=== PATIENT | female | born 1985 | race Two or more races ===

== ENCOUNTER → 2018-01-10 | Outpatient (REF) | payer OTHER | LOC: M SFHCCLAY 08:16 | DX: N39.0 Urinary tract infection, site not specified (principal) | CPT/HCPCS: 87086 ==

== ENCOUNTER → 2018-02-10 | Outpatient (REF) | payer OTHER | LOC: M SFHCCLAY 11:57 | DX: R30.0 Dysuria (principal) ==

== ENCOUNTER → 2018-05-02 | Outpatient (REF) | payer OTHER | LOC: M SFHCCLAY 13:55 | DX: N30.00 Acute cystitis without hematuria (principal) | CPT/HCPCS: 87086 ==

== ENCOUNTER → 2020-11-02 | Outpatient (REF) | payer OTHER ==
[~2020-11-02] MED LIST: AMET1TAB4 PO; HYDROCHL PO; METO50TA9 PO; METOPROLOL SUCCINATE PO; OMEP1CAP73 PO; [UNRECOGNIZED DRUG - OTHER] PO; meto
[2020-11-02 13:56] LABS: HEMATOCRIT 38.2 % (36.0-47.0); HEMOGLOBIN 11.7 g/dl (12.0-15.5); MEAN CORPUSCULAR HEMOGLOBIN 23.8 pg (27.0-33.0); MEAN CORPUSCULAR HGB CONC 30.6 g/dl (32.0-36.5); MEAN CORPUSCULAR VOLUME 77.6 fl (80.0-96.0); PLATELET COUNT, AUTOMATED 187 10^3/uL (150-450); RED BLOOD COUNT 4.92 10^6/uL (4.00-5.40); WHITE BLOOD COUNT 8.4 10^3/uL (4.0-10.0)
[2020-11-02 15:11] LABS: HEPATITIS C VIRUS ABY INDEX 0.1 INDEX (<0.8); HIV 1&2 SCREEN CENTAUR NEGATIVE (NEGATIVE)
== END ==
LOC: M PLALAB 11:42
PROVIDERS: ATTEND Specialist
DX: Z34.81 Encounter for supervision of other normal pregnancy, first trimester (principal)

== ENCOUNTER → 2020-12-13 | Outpatient (CLI) | payer OTHER | LOC: M PLALAB 11:09 | PROVIDERS: ATTEND Specialist | DX: Z34.82 Encounter for supervision of other normal pregnancy, second trimester (principal) ==

== ENCOUNTER → 2020-12-30 | Outpatient (CLI) | payer OTHER ==
--- NOTE | 2020-12-30 16:38 | REP ---
INDICATION: ANATOMY COMPARISON: None. TECHNIQUE: Transabdominal and transvaginal obstetrical ultrasound with color Doppler evaluation. FINDINGS: Examination demonstrates a single live intrauterine in cephalic presentation. motion is identified by technologist. Placenta is noted posterior and grade 1 with findings to suggest partial previa. Cervix measures 4.3 cm in length and appears closed. Gestational age by LMP 18 weeks 1 day with АЛЕКСАНДР 06/01/2021. Gestational age by current measurements 19 weeks 0 days with АЛЕКСАНДР 05/26/2021. FHR equals 146 beats per minute. BPD: 3.9 cm at 17 weeks 6 days HC: 15.5 cm at 18 weeks 3 days AC: 12.8 cm at 18 weeks 3 days FL: 3.0 cm at 19 weeks 3 days HL: 3.2 cm at 20 weeks 5 days HC/AC: 1.21 Estimated weight 255 grams (80thpercentile). Anatomical assessment demonstrates normal structures including cranium, choroid plexus, facial features, cardiac ventricular outflow tracts, diaphragm, stomach, three-vessel cord/abdominal wall, kidneys/bladder, spine, and extremities. Limited evaluation of the posterior fossa noted along with echogenic focus in the right cardiac ventricle which may represent prominent chordae tendineae. IMPRESSION: 1. Single live intrauterine in cephalic presentation demonstrating appropriate estimated weight. 2. Posterior placenta with partial previa warrants follow-up. 3. Anatomical limitations as noted above warrant follow-up. <Electronically signed by Jacob Woodruff > 12/30/20 [id number]
== END ==
LOC: M WHC 14:19
PROVIDERS: ATTEND Specialist
DX: O34.211 Maternal care for low transverse scar from previous cesarean delivery (principal); O10.012 Pre-existing essential hypertension complicating pregnancy, second trimester; Z3A.19 19 weeks gestation of pregnancy

== ENCOUNTER → 2021-01-27 | Outpatient (CLI) | payer OTHER ==
--- NOTE | 2021-01-27 13:09 | REP ---
INDICATION: F/U ANATOMY, follow-up low lying placenta, placenta previa. COMPARISON: 12/30/2020. TECHNIQUE: Limited follow-up sonography to evaluate placenta and an intracardiac echogenic focus. FINDINGS: Scanning demonstrates a viable single intrauterine gestation in a variable lie. motion is observed and heart rate is recorded at 156 beats per minute. A posterior, grade zero placenta is seen without evidence of previa on today's examination, seen well above the internal cervical os. Amniotic fluid is subjectively normal. Closed cervical length is measured at 3.8 cm transabdominally. No extrauterine abnormality is observed. There has been appropriate interval growth. No anomaly is seen. Previously noted intracardiac echogenic focus is not seen on today's examination. Structures visualized and unremarkable today were the cranial vault, lateral ventricles, falx, cavum septum pellucidum, cerebellum and cisterna magna, nuchal fold, profile view of the face, four-chamber heart view, right ventricular outflow tract, stomach bubble, abdominal wall, bladder and three-vessel cord all seen. The visualized structures all unremarkable. Biometry chart: BPD 5.1 cm; 21 weeks 3 days Head circumference 19.7 cm; 21 weeks 6 days Abdominal circumference 18.1 cm; 22 weeks 6 days Femur length 4.1 cm; 23 weeks 3 days Humeral length 3.6 cm; 22 weeks 3 days HC/AC ratio normal 1.09 Cephalic index normal 0.71 Estimated weight 549 grams, 1 pounds 3 ounces, 83rd percentile for 22 weeks 1 days. IMPRESSION: Viable single intrauterine gestation at 22 weeks days 3 days by today's composite sonographic criteria. Expected gestational age estimate based on prior sonography is 22 weeks is 1 days. АЛЕКСАНДР by prior sonography 06/01/2021. The placenta is seen posteriorly, not low lying or previa, it is away from the internal cervical os on today's exam. No anomaly. <Electronically signed by Bobby Garcia > 01/27/21 [id number]
== END ==
LOC: M WHC 08:31
PROVIDERS: ATTEND Obstetrics & Gynecology
DX: O44.02 Complete placenta previa NOS or without hemorrhage, second trimester (principal); Z3A.22 22 weeks gestation of pregnancy

== ENCOUNTER → 2021-02-10 | Outpatient (REF) | payer OTHER | LOC: CANPREREF → M PLALAB 15:56 | PROVIDERS: ATTEND Obstetrics & Gynecology | DX: O44.02 Complete placenta previa NOS or without hemorrhage, second trimester (principal) ==

== ENCOUNTER → 2021-04-07 | Outpatient (CLI) | payer OTHER | LOC: M WHC 08:40 | PROVIDERS: ATTEND Obstetrics & Gynecology | DX: Z36.89 Encounter for other specified antenatal screening (principal); Z3A.32 32 weeks gestation of pregnancy; Z53.9 Procedure and treatment not carried out, unspecified reason ==

== ENCOUNTER → 2021-04-21 | Outpatient (CLI) | payer OTHER ==
--- NOTE | 2021-04-21 12:33 | REP ---
INDICATION: BPP/HYPERTENSION. COMPARISON: None. TECHNIQUE: Transabdominal scanning FINDINGS: Multiple ultrasonographic images of the gravid uterus shows a single living intrauterine gestation in the cephalic presentation. Doppler interrogation of the heart shows a heart rate of 146 beats per minute. The placenta is posterior and not low-lying. The cervix measures 3.8 cm in length and is closed. The subjective amniotic fluid volume is within normal limits. The calculated amniotic fluid index is 13.4 with an expected range 8.1 to 24.8. Doppler interrogation of the umbilical artery shows an AB ratio of 2.55 and an AB ratio of 2.32 both within the normal range. Biophysical profile score is 2 for breathing, 2 for movement, 2 for tone, and 2 for amniotic fluid volume giving a sum total of 8/8. IMPRESSION: Limited OB ultrasound as described above. <Electronically signed by Tony Paredes > 04/21/21 [id number]
== END ==
LOC: M WHC 11:41
PROVIDERS: ATTEND Obstetrics & Gynecology
DX: Z36.89 Encounter for other specified antenatal screening (principal); Z3A.32 32 weeks gestation of pregnancy

== ENCOUNTER → 2021-04-27 | Outpatient (CLI) | payer OTHER ==
--- NOTE | 2021-04-27 08:20 | REP ---
INDICATION: HYPERTENSION,BPP COMPARISON: 04/21/2021 TECHNIQUE: Transabdominal obstetrical ultrasound with color Doppler evaluation. FINDINGS: Examination demonstrates a single live intrauterine in cephalic presentation. motion is identified by technologist. Placenta is noted posterior and grade 1 without evidence for placenta previa or abruption. Amniotic fluid volume is normal. Selected gestational age: 35 weeks 0 days with АЛЕКСАНДР 06/01/2021. FHR equals 143 beats per minute. IVONNE: 14.3 cm (7.9-24.9) Biophysical profile score: 8/8 Umbilical artery SD ratio: 2.83 (1.68-3.59) IMPRESSION: Single live advanced gestation in cephalic presentation. Amniotic fluid index and biophysical profile score normal. <Electronically signed by Jacob Woodruff > 04/27/21 [id number]
== END ==
LOC: M WHC 06:54
PROVIDERS: ATTEND Obstetrics & Gynecology
DX: I10 Essential (primary) hypertension (principal)

== ENCOUNTER → 2021-05-03 | Outpatient (CLI) | payer OTHER ==
[~2021-05-03] MED LIST changes: +ECOT81TA5 PO; +LABE200T32 PO
--- NOTE | 2021-05-03 13:41 | REP ---
INDICATION: HYPERTENSION,BPP. TECHNIQUE: Transabdominal scanning FINDINGS: Multiple ultrasonographic images of the gravid uterus show a single living intrauterine gestation in the cephalic presentation. Doppler interrogation of the heart shows a heart rate of 127 beats per minute. The placenta is posterior and not low-lying. The head was too low for an accurate cervical length measurement. The subjective amniotic fluid volume is within normal limits. The calculated amniotic fluid index is 15.1 within expected range 7.7 to 24.9. biophysical profile score is 2 for breathing, 2 for movement, 2 for tone, and 2 for amniotic fluid volume giving a sum total of 8/8. Doppler interrogation of the umbilical artery shows an AB ratio of 2.57. This is within the normal range IMPRESSION: Limited OB ultrasound as described above. <Electronically signed by Tony Paredes > 05/03/21 [id number]
== END ==
LOC: M WHC 12:42
PROVIDERS: ATTEND Obstetrics & Gynecology
DX: Z36.89 Encounter for other specified antenatal screening (principal); Z3A.32 32 weeks gestation of pregnancy

== ENCOUNTER → 2021-05-04 | Outpatient (REF) | payer OTHER | LOC: M SFHCWAGY 17:19 | PROVIDERS: ATTEND Specialist | DX: Z34.83 Encounter for supervision of other normal pregnancy, third trimester (principal) ==

== ENCOUNTER → 2021-05-11 | Outpatient (CLI) | payer OTHER ==
--- NOTE | 2021-05-11 10:18 | REP ---
INDICATION: HTN COMPARISON: 05/03/2021 TECHNIQUE: Transabdominal obstetrical ultrasound with color Doppler evaluation. FINDINGS: Examination demonstrates a single live intrauterine in cephalic presentation. motion is identified by technologist. Placenta is noted posterior and grade 2 without evidence for placenta previa or abruption. Amniotic fluid volume is normal. Cervix measures 3.8 cm in length and appears closed.. Selected gestational age: 37 weeks 0 days with АЛЕКСАНДР 06/01/2021. FHR equals 143 beats per minute. IVONNE: 14.2 cm Umbilical artery SD ratio: 1.93 (1.59-3.43) Biophysical profile score: 8/8 IMPRESSION: Single live advanced gestation in cephalic presentation. Amniotic fluid volume and biophysical profile score are normal. <Electronically signed by Jacob Woodruff > 05/11/21 [id number]
== END ==
LOC: M WHC 08:54
PROVIDERS: ATTEND Obstetrics & Gynecology
DX: Z36.89 Encounter for other specified antenatal screening (principal); Z3A.32 32 weeks gestation of pregnancy

== ENCOUNTER → 2021-05-13 | Outpatient (CLI) | payer OTHER | LOC: M LABSMTC 09:53 | PROVIDERS: ATTEND Anesthesiology | DX: Z01.812 Encounter for preprocedural laboratory examination (principal); Z20.822 Contact with and (suspected) exposure to COVID-19 ==

== ENCOUNTER 2021-05-18 05:36 | Inpatient (IN) | payer OTHER ==
[2021-05-18] VITALS (9 sets, daily range): BP systolic 119–170; BP diastolic 57–93
[~2021-05-18] VITALS: Ht 177.8 cm; Wt 124.8 kg
[2021-05-18] MEDS ORDERED: ceFAZolin SOD 2 GM in IV 1 EA IV ONE (06:00)
[2021-05-18] MEDS ORDERED: BICITRA 30ML SOLN UDC PO ONE (06:00)
[2021-05-18] MEDS ORDERED: LR 800 ML IV ONE (06:00)
[2021-05-18 06:25] LABS: HEMATOCRIT 30.2 % (36.0-47.0); HEMOGLOBIN 9.8 g/dl (12.0-15.5); MEAN CORPUSCULAR HEMOGLOBIN 25.5 pg (27.0-33.0); MEAN CORPUSCULAR HGB CONC 32.5 g/dl (32.0-36.5); MEAN CORPUSCULAR VOLUME 78.4 fl (80.0-96.0); PLATELET COUNT, AUTOMATED 151 10^3/uL (150-450); RED BLOOD COUNT 3.85 10^6/uL (4.00-5.40); WHITE BLOOD COUNT 9.8 10^3/uL (4.0-10.0)
[2021-05-18] MEDS ORDERED: LR 1,000 ML IV SCH ×2 (06:45→09:50)
[2021-05-18] MEDS ORDERED: ONDANSETRON 4MG/2ML VIAL As Ordered ONE (07:08)
[2021-05-18] MEDS ORDERED: OXYTOCIN INJ 10 UNITS/ML VIAL (J2590) As Ordered ONE (07:08)
[2021-05-18] MEDS ORDERED: ePHEDrine SULFATE 25 MG/5 ML(5MG/ML) SYRINGE As Ordered ONE (07:08)
[2021-05-18] MEDS ORDERED: KETOROLAC 60MG 2ML VIAL As Ordered ONE (07:08)
[2021-05-18] MEDS ORDERED: PHENYLephrine 500MCG 5ML (100MCG/ML) SYRINGE As Ordered ONE (07:08)
[2021-05-18] MEDS ORDERED: dexameTHASONE 4 MG/ML 1ML VIAL (J1100 PER 1MG) As Ordered ONE (07:08)
[2021-05-18] MEDS ORDERED: OXYTOCIN 30 UNITS IN 0.9% NaCl 500ML IV BAG (J2590) As Ordered ONE (07:12)
[2021-05-18] MEDS ORDERED: MORPHINE PRES-FREE INJ 10 MG/10 ML VIAL (J2274) As Ordered ONE (07:27)
[2021-05-18] MEDS ORDERED: ONDANSETRON 4MG/2ML VIAL IV PRN ×3 (07:40→09:50)
[2021-05-18] MEDS ORDERED: METOCLOPRAMIDE INJ 10MG/2ML VIAL (J2765 PER 1) IV PRN ×2 (07:40→09:50)
[2021-05-18] MEDS ORDERED: diphenhydrAMINE 50MG/ML VIAL (J1200) IV PRN (07:40)
[2021-05-18] MEDS ORDERED: NALOXONE INJ 0.4MG/1ML VIAL (J2310 PER 1MG) IV PRN ×2 (07:40)
[2021-05-18] MEDS ORDERED: NALBUPHINE HCL 10 MG/ML AMP (J2300) IV PRN (07:40)
[2021-05-18] MEDS ORDERED: fentaNYL 100 MCG/2 ML INJECTION (J3010) As Ordered ONE (08:34)
[2021-05-18] MEDS ORDERED: ACETAMINOPHEN 500 MG TAB PO PRN (08:55)
[2021-05-18] MEDS ORDERED: OXYTOCIN DRIP 30 UNITS in IV 1 EA IV SCH (08:55)
[2021-05-18] MEDS ORDERED: RHOGAM 300 MCG (1500 IU) INJ (J2790) IM SCH (08:55)
[2021-05-18] MEDS ORDERED: PERCOCET 5MG/325MG TAB PO PRN ×3 (08:55→09:50)
[2021-05-18] MEDS ORDERED: SIMETHICONE 80MG CHEW TAB PO PRN (08:55)
[2021-05-18] MEDS ORDERED: MEASLES,MUMPS,RUBELLA VACCINE INJ (MMR-II) (90707) SC SCH (08:55)
[2021-05-18] MEDS: OMEPRAZOLE 20 MG CAP PO SCH (09:00)
[2021-05-18] MEDS: PRENATAL VITAMINS CHEWABLE TABLET PO SCH (09:00)
[2021-05-18] MEDS: DOCUSATE SODIUM 100MG CAPSULE PO SCH ×2 (09:00→20:15)
[2021-05-18] MEDS: LABETALOL 200 MG TAB PO SCH ×2 (09:00→20:36)
[2021-05-18] MEDS ORDERED: DOK1CAP7 PO (09:04)
[2021-05-18] MEDS ORDERED: IBUP80TA PO (09:04)
[2021-05-18] MEDS ORDERED: PERCOCET PO (09:04)
--- NOTE | 2021-05-18 09:20 | ROOPDOC ---
[facility] Report Of Operation Report of Operation DATE OF PROCEDURE: 05/18/21 Report of operation Preoperative diagnosis: 38 weeks, chronic hypertension, prior Postoperative diagnosis: same Procedure: Repeat low transverse section and left partial salpingectomy Surgeon: Mercedes Choudhury M.D. Asst.: Anibal Enriquez DO EBL: 700 ml. Urine output: 100 mL's. Findings: 7 lbs. 12 oz. female , 's 8 and 9 g. Dense adhesions of uterus to the anterior abdominal wall. Omental adhesions to the uterus. Surgically absent right ovary and fallopian tube. Omental adhesions to the left adnexa. Operative summary: Patient taken to the operating room where spinal anesthesia was induced. She was prepped and draped in a sterile fashion in the supine position. A Sawyer catheter was placed. A Pfannenstiel skin incision was made with scalpel. Fascia was incised and extended bilaterally. The peritoneal cavity was entered. A Mobius retractor was unable to be placed due to dense adhesions. A curvilinear incision was made in lower uterine segment until Clear fluid was noted. The incision was extended manually. The infant was delivered from the vertex position without difficulty. Cord was doubly clamped and cut. The infant was handed to awaiting nurses. The placenta was expressed. Uterus was closed with O-Vicryl in a running locked fashion. A second imbricating layer of Vicryl was placed. Adhesions of the uterus to the anterior abdominal wall were taken down sharply. Attention was turned to the fallopian tube. A [place] clamp was used to grasp the fallopian left tube at the midportion.. A window was created in the broad ligament. A free tie of 2-0 chromic was placed around the segment of tube on either side of the clamp. A Segment of tube was excised and sent to pathology. The absence of a right ovary and fallopian tube was confirmed visually. Numerous [id number] sutures were placed in order to achieve him hemostasis. Franck was placed over all raw surface areas of the anterior uterus. Peritoneum was closed with 2-0 Vicryl a running fashion. Fascia was closed with 0 Vicryl in running fashion. Skin was closed 4-0 Monocryl subcuticular sutures. Sponge, instrument and needle counts were correct. Anibal Enriquez DO, assisted with all aspects of the procedure. He helped close each layer of the incision and deliver the fetus. MERCEDES CHOUDHURY MD May 18, 2021 09:20
[2021-05-18] MEDS ORDERED: fentaNYL 100 MCG/2 ML INJECTION (J3010) IV PRN (09:50)
[2021-05-18] MEDS: LR 1,000 ML IV SCH ×2 (10:50→16:55)
[2021-05-18] MEDS: KETOROLAC 30 MG/ML 1ML VIAL IV SCH ×2 (14:01→20:15)
[2021-05-19] VITALS (7 sets, daily range): BP systolic 118–141; BP diastolic 56–79
[2021-05-19] MEDS: KETOROLAC 30 MG/ML 1ML VIAL IV SCH (01:51)
[2021-05-19 07:31] LABS: HEMATOCRIT 21.2 % (36.0-47.0); MEAN CORPUSCULAR HEMOGLOBIN 24.9 pg (27.0-33.0); MEAN CORPUSCULAR HGB CONC 31.6 g/dl (32.0-36.5); MEAN CORPUSCULAR VOLUME 78.8 fl (80.0-96.0); PLATELET COUNT, AUTOMATED 125 10^3/uL (150-450); RED BLOOD COUNT 2.69 10^6/uL (4.00-5.40); WHITE BLOOD COUNT 12.6 10^3/uL (4.0-10.0)
[2021-05-19 07:33] LABS: HEMOGLOBIN 6.7 g/dl (12.0-15.5)
[2021-05-19] MEDS: OMEPRAZOLE 20 MG CAP PO SCH (08:06)
[2021-05-19] MEDS: PRENATAL VITAMINS CHEWABLE TABLET PO SCH (08:07)
[2021-05-19] MEDS: DOCUSATE SODIUM 100MG CAPSULE PO SCH ×2 (08:07→20:22)
[2021-05-19] MEDS: LABETALOL 200 MG TAB PO SCH ×2 (08:08→20:22)
--- NOTE | 2021-05-19 08:39 | IPNPDOC ---
Progress Note Date of Service: May 19, 2021 Day#: 1 Progress Note SUBJECT: Status post RLTCS with unilateral tubal ligation. Notable for extensive adhesions. She has been ambulating, voiding spontaneously without issue and tolerating regular diet. Lochia decreasing/minimal. Pain is well- controlled. Incision bandage is clean/unsaturated. Denies headache, visual changes, right upper quadrant pain, shortness of breath or chest pain. Denies any lightheaded dizziness fatigue or presyncopal episodes. OBJECTIVE: VITAL SIGNS: Within normal limits, afebrile. Alert and oriented times three. Abdomen: Fundus firm at U-2. Soft, NTTP. Incision bandage not soaked through H/H: 04/17 ASSESSMENT: Status post uncomplicated RLTCS with unilateral tubal ligation. Postoperative anemia, currently asymptomatic. vitals within normal limits, afebrile, hemodynamically stable with no evidence of infection. PLAN: Discharge to home tomorrow Consider blood transfusion if patient becomes symptomatic today Routine /postoperative advancement Postoperative instructions/precautions reviewed. Routine PP visit at 2 and 6 weeks in clinic. VS, I&O, 24H, Fishbone Vital Signs/I&O Vital Signs Date Time Temp Pulse Resp B/P (MAP) Pulse Ox O2 Delivery O2 Flow Rate FiO2 05/19/21 08:08 80 127/62 05/19/21 05:56 97.9 17 99 Room Air I&O- Last 24 Hours up to 6 AM 05/19/21 06:00 Intake Total 4650 ml Output Total 2130 ml Balance 2520 ml Laboratory Data 24H LABS Laboratory Tests 2 05/19/21 06:58: Nucleated Red Blood Cells % (auto) 0.0 CBC/BMP Laboratory Tests 05/19/21 06:58 RONA TOLEDO DO May 19, 2021 08:39
[2021-05-19] MEDS: IBUPROFEN 800 MG TAB PO SCH ×2 (12:04→18:56)
[2021-05-20] MEDS: IBUPROFEN 800 MG TAB PO SCH ×2 (01:55→09:21)
[2021-05-20 02:17] VITALS: BP 130/60
[2021-05-20 06:14] VITALS: BP 133/65
--- NOTE | 2021-05-20 07:32 | DS.PDOC ---
Discharge Summary General Date of Admission May 18, 2021 at 05:36 Date of Discharge May 20, 2021 Discharge Summary PROCEDURES PERFORMED DURING STAY: Repeat section with partial left salpingectomy ADMITTING DIAGNOSES: 1. Chronic hypertension in 2. Prior section 3. Obesity DISCHARGE DIAGNOSES: 1. Chronic hypertension 2; Repeat section @ term with partial left salpingectomy 3. Obesity COMPLICATIONS/CHIEF COMPLAINT: Previous Chronic Hypertension. HISTORY OF PRESENT ILLNESS: Ms Celestin was admitted 05/18/2021 for repeat section with partial left salpingectomy performed by Dr Evangelista, assisted by Dr Enriquez HOSPITAL COURSE: Ambulating, tolerating diet, adequate pain management, voiding and passing flatus DISCHARGE MEDICATIONS: Please see below. ALLERGIES: Please see below. PHYSICAL EXAMINATION ON DISCHARGE: VITAL SIGNS: Please see below. GENERAL: No distress HEENT: WNL NECK: Supple CARDIOVASCULAR EXAMINATION: HRR, well controlled hypertension RESPIRATORY EXAMINATION: Clear and unlabored ABDOMINAL EXAMINATION: Fundus firm, dressing intact with old drainage as marked EXTREMITIES: Equal strength and motion SKIN: Intact NEUROLOGICAL EXAMINATION: Grossly intact PSYCHIATRIC EXAMINATION: Appropriate LABORATORY DATA: Please see below. PROGNOSIS: Good ACTIVITY: As tolerated, pelvic rest DIET: As tolerated DISCHARGE PLAN: Home today with family DISPOSITION: Home. DISCHARGE INSTRUCTIONS: 1. Oral medications as directed. Remove dressing day 5. Continue PNV, iron rich foods. Pelvic rest. Call with fever, nausea, vomiting, chills, foul lochia, wound exudate, blood pressure elevations. 2. RTO 2wks and 6 wks DISCHARGE CONDITION: Stable TIME SPENT ON DISCHARGE: 10 minutes. Vital Signs/I&Os Vital Signs Date Time Temp Pulse Resp B/P (MAP) Pulse Ox O2 Delivery O2 Flow Rate FiO2 05/20/21 06:14 97.9 72 18 133/65 (87) 99 05/20/21 02:17 Room Air I&O- Last 24 Hours up to 6 AM 05/20/21 06:00 Intake Total 300 ml Balance 300 ml Discharge Medications Scheduled Aspirin (Ecotrin) 81 Mg Tablet, 81 MG PO DAILY, (Reported) Docusate Sodium (Dok) 100 Mg Capsule, 100 MG PO BID Ibuprofen (Ibuprofen) 800 Mg Tablet, 800 MG PO Q8H Labetalol HCl (Labetalol HCl) 200 Mg Tablet, 200 MG PO BID, (Reported) Omeprazole (Omeprazole) 20 Mg Cap, 20 MG PO DAILY, (Reported) Scheduled PRN Oxycodone/Acetaminophen (Oxycodone-Acetaminophen 5-325) 1 Each Tablet, 1 TAB PO Q4H PRN for MILD/MODERATE PAIN (PS 1-7) Allergies Coded Allergies: No Known Allergies (Unverified , 05/18/21) Nery Rivas CNM May 20, 2021 07:32
[2021-05-20 09:14] VITALS: BP 132/69
[2021-05-20] MEDS: DOCUSATE SODIUM 100MG CAPSULE PO SCH (09:20)
[2021-05-20] MEDS: PRENATAL VITAMINS CHEWABLE TABLET PO SCH (09:20)
[2021-05-20] MEDS: OMEPRAZOLE 20 MG CAP PO SCH (09:21)
[2021-05-20 09:22] VITALS: BP 132/69
[2021-05-20] MEDS: LABETALOL 200 MG TAB PO SCH (09:22)
== END 2021-05-20 11:37 | disposition home or self-care (01) | DRG 784 ==
LOC: M LDI 05:36 → M OBS 10:29
PROVIDERS: ADMIT Specialist; ATTEND Specialist
PROC: 0UB60ZZ Excision of Left Fallopian Tube, Open Approach (ICD-10-PCS; 2021-05-18)
PROC: 10D00Z1 Extraction of Products of Conception, Low, Open Approach (ICD-10-PCS; principal; 2021-05-18 07:30)
DX: O34.211 Maternal care for low transverse scar from previous cesarean delivery (principal); O10.92 Unspecified pre-existing hypertension complicating childbirth; E66.9 Obesity, unspecified; O99.214 Obesity complicating childbirth; Z37.0 Single live birth; Z3A.39 39 weeks gestation of pregnancy

== ENCOUNTER → 2022-03-28 | Outpatient (REF) | payer OTHER ==
[~2022-03-28] MED LIST changes: +DOK1CAP4 PO; +IBUP80TA PO; +LABE200T3 PO; -LABE200T32 PO; +PERCOCET PO
[2022-03-28 11:38] LABS: BASO # 0.1 10^3/uL (0.0-0.2); BASO % 0.8 % (0.0-1.0); EOS # 0.2 10^3/uL (0.0-0.5); EOS % 2.4 % (0.0-3.0); HEMATOCRIT 34.2 % (36.0-47.0); HEMOGLOBIN 10.1 g/dl (12.0-15.5); LYMPH # 1.7 10^3/uL (1.5-5.0); LYMPH % 24.5 % (24.0-44.0); MEAN CORPUSCULAR HEMOGLOBIN 19.9 pg (27.0-33.0); MEAN CORPUSCULAR HGB CONC 29.5 g/dl (32.0-36.5); MEAN CORPUSCULAR VOLUME 67.5 fl (80.0-96.0); MONO # 0.9 10^3/uL (0.0-0.8); NEUTROPHILS # 4.3 10^3/uL (1.5-8.5); PLATELET COUNT, AUTOMATED 227 10^3/uL (150-450); RED BLOOD COUNT 5.07 10^6/uL (4.00-5.40); WHITE BLOOD COUNT 7.1 10^3/uL (4.0-10.0)
[2022-03-28 12:11] LABS: PERCENT SATURATION 6.5 % (13.2-45.0)
== END ==
LOC: M SFHCCLAY 07:24
PROVIDERS: ATTEND Nurse Practitioner Family
DX: D64.9 Anemia, unspecified (principal)

== ENCOUNTER → 2023-01-08 | Outpatient (REF) | payer OTHER ==
[~2023-01-08] MED LIST changes: -LABE200T3 PO; +LABE200T5 PO
[2023-01-08 12:02] LABS: BASO # 0.1 10^3/uL (0.0-0.2); BASO % 0.7 % (0.0-1.0); EOS # 0.2 10^3/uL (0.0-0.5); EOS % 2.3 % (0.0-3.0); HEMATOCRIT 45.1 % (36.0-47.0); HEMOGLOBIN 14.7 g/dl (12.0-15.5); LYMPH # 1.8 10^3/uL (1.5-5.0); LYMPH % 22.1 % (24.0-44.0); MEAN CORPUSCULAR HEMOGLOBIN 26.5 pg (27.0-33.0); MEAN CORPUSCULAR HGB CONC 32.6 g/dl (32.0-36.5); MEAN CORPUSCULAR VOLUME 81.4 fl (80.0-96.0); MONO # 0.8 10^3/uL (0.0-0.8); MONO % 9.3 % (2.0-8.0); NEUTROPHILS # 5.4 10^3/uL (1.5-8.5); NEUTROPHILS % 65.4 % (36.0-66.0); PLATELET COUNT, AUTOMATED 187 10^3/uL (150-450); RED BLOOD COUNT 5.54 10^6/uL (4.00-5.40); WHITE BLOOD COUNT 8.3 10^3/uL (4.0-10.0)
[2023-01-08 12:21] LABS: IRON (FE) 194 UG/DL (50-170); PERCENT SATURATION 58.6 % (13.2-45.0); TOTAL IRON BINDING CAPACITY 331 UG/DL (250-425)
[2023-01-08 12:49] LABS: ALBUMIN 3.8 G/DL (3.2-5.2); ALKALINE PHOSPHATASE 92 U/L (46-116); ALT/SGPT 19 U/L (7.0-40); AST/SGOT 20 U/L (<34); BILIRUBIN,TOTAL 0.4 MG/DL (0.3-1.2); BLOOD UREA NITROGEN 13 MG/DL (9-23); CALCIUM LEVEL 8.8 MG/DL (8.5-10.1); CARBON DIOXIDE LEVEL 29 MMOL/L (20-31); CHLORIDE LEVEL 103 MMOL/L (98-107); CREATININE FOR GFR 0.57 MG/DL (0.55-1.30); GLOMERULAR FILTRATION RATE > 60.0 (>60); GLUCOSE, FASTING 106 MG/DL (60-100); POTASSIUM SERUM 3.5 MMOL/L (3.5-5.1); SODIUM LEVEL 140 MMOL/L (136-145)
== END ==
LOC: M SFHCCLAY 07:54
PROVIDERS: ATTEND Nurse Practitioner Family
DX: D64.9 Anemia, unspecified (principal); I10 Essential (primary) hypertension

== ENCOUNTER → 2023-04-25 | Outpatient (REF) | payer OTHER ==
[2023-04-25 12:20] LABS: ALBUMIN 3.9 G/DL (3.2-5.2); ALKALINE PHOSPHATASE 98 U/L (46-116); ALT/SGPT 27 U/L (7.0-40); AST/SGOT 15 U/L (<34); BILIRUBIN,TOTAL 0.5 MG/DL (0.3-1.2); BLOOD UREA NITROGEN 13 MG/DL (9-23); CALCIUM LEVEL 9.6 MG/DL (8.5-10.1); CARBON DIOXIDE LEVEL 28 MMOL/L (20-31); CHLORIDE LEVEL 102 MMOL/L (98-107); CHOLESTEROL LEVEL 170 MG/DL (<200); FREE T4 0.99 NG/DL (0.89-1.76); GLOMERULAR FILTRATION RATE > 60.0 (>60); GLUCOSE, FASTING 116 MG/DL (60-100); LDL CHOLESTEROL 111.4 MG/DL (<100); POTASSIUM SERUM 3.5 MMOL/L (3.5-5.1); SODIUM LEVEL 136 MMOL/L (136-145); THYROID STIMULATING HORMONE 1.831 uIU/ML (0.55-4.78); TOTAL PROTEIN 7.4 G/DL (5.7-8.2); TRIGLYCERIDES LEVEL 123 MG/DL (<150)
[2023-04-25 12:37] LABS: HEMOGLOBIN A1c 5.4 % (4.0-6.0)
== END ==
LOC: M SFHCCLAY 07:54
PROVIDERS: ATTEND Nurse Practitioner Family
DX: D64.9 Anemia, unspecified (principal); I10 Essential (primary) hypertension; E78.2 Mixed hyperlipidemia; Z13.1 Encounter for screening for diabetes mellitus

== ENCOUNTER → 2023-05-22 | Outpatient (REF) | payer OTHER ==
[2023-05-22 18:02] LABS: BLOOD UREA NITROGEN 11 MG/DL (9-23); CALCIUM LEVEL 8.8 MG/DL (8.5-10.1); CARBON DIOXIDE LEVEL 29 MMOL/L (20-31); CHLORIDE LEVEL 100 MMOL/L (98-107); CREATININE FOR GFR 0.55 MG/DL (0.55-1.30); GLOMERULAR FILTRATION RATE > 60.0 (>60); GLUCOSE, FASTING 100 MG/DL (60-100); POTASSIUM SERUM 3.6 MMOL/L (3.5-5.1); SODIUM LEVEL 139 MMOL/L (136-145)
== END ==
LOC: M SFHCCLAY 11:12
PROVIDERS: ATTEND Nurse Practitioner Family
DX: E87.6 Hypokalemia (principal)

== ENCOUNTER → 2023-08-01 | Outpatient (CLI) | payer OTHER | LOC: M WHC 14:51 | PROVIDERS: ATTEND Obstetrics & Gynecology | DX: N93.9 Abnormal uterine and vaginal bleeding, unspecified (principal); N88.8 Other specified noninflammatory disorders of cervix uteri; Z90.721 Acquired absence of ovaries, unilateral ==

== ENCOUNTER 2023-09-25 07:08 | Day surgery (SDC) | payer OTHER ==
[~2023-09-25] VITALS: Ht 177.8 cm; Wt 126.0 kg
[~2023-09-25 07:08] MED LIST changes: +CHLO125TA PO
[2023-09-25] MEDS ORDERED: LR 1,000 ML IV SCH ×2 (07:15→11:05)
[2023-09-25 07:53] LABS: HEMATOCRIT 43.1 % (36.0-47.0); HEMOGLOBIN 14.5 g/dl (12.0-15.5); MEAN CORPUSCULAR HEMOGLOBIN 26.8 pg (27.0-33.0); MEAN CORPUSCULAR HGB CONC 33.6 g/dl (32.0-36.5); MEAN CORPUSCULAR VOLUME 79.7 fl (80.0-96.0); PLATELET COUNT, AUTOMATED 224 10^3/uL (150-450); RED BLOOD COUNT 5.41 10^6/uL (4.00-5.40); WHITE BLOOD COUNT 7.7 10^3/uL (4.0-10.0)
[2023-09-25] MEDS ORDERED: propofoL 200 MG/20 ML VIAL As Ordered ONE (08:13)
[2023-09-25] MEDS ORDERED: MIDAZOLAM INJ 2MG/2ML VIAL As Ordered ONE (08:13)
[2023-09-25] MEDS ORDERED: ONDANSETRON 4MG 2ML VIAL As Ordered ONE (08:13)
[2023-09-25] MEDS ORDERED: fentaNYL 100 MCG/2 ML INJECTION As Ordered ONE (08:13)
[2023-09-25] MEDS ORDERED: KETOROLAC 60MG 2ML VIAL As Ordered ONE (08:13)
[2023-09-25] MEDS ORDERED: LIDOCAINE 2% 100MG/5ML SDV (FOR ANES.) As Ordered ONE (08:13)
[2023-09-25] MEDS ORDERED: SILVER NITRATE APPLICATOR (1 = QTY 10) As Ordered ONE (08:47)
[2023-09-25] MEDS ORDERED: LIDOCAINE 1% SDV 30ML VIAL As Ordered ONE (08:48)
[2023-09-25] MEDS ORDERED: LEVONORGESTREL 52MG (MIRENA) IUD As Ordered ONE (08:48)
[2023-09-25] MEDS ORDERED: ACETAMINOPHEN 1000MG 100ML IV BAG As Ordered ONE (09:38)
[2023-09-25] MEDS ORDERED: fentaNYL 100 MCG/2 ML INJECTION IV PRN (10:05)
[2023-09-25] MEDS ORDERED: oxyCODONE 5MG TAB PO PRN (10:05)
[2023-09-25] MEDS ORDERED: MORPHINE 2 MG/ML 1ML VIAL IV PRN (10:05)
[2023-09-25] MEDS ORDERED: ONDANSETRON 4MG 2ML VIAL IV PRN (10:05)
[2023-09-25] MEDS ORDERED: IBUP1TAB7 PO (10:17)
[2023-09-25 11:39] VITALS: BP 136/96; TEMP 97.3; O2SAT 94
== END 2023-09-30 08:27 | disposition home or self-care (01) ==
LOC: M SDC 07:08
PROVIDERS: ATTEND Obstetrics & Gynecology
DX: N84.0 Polyp of corpus uteri (principal); Z30.430 Encounter for insertion of intrauterine contraceptive device; I10 Essential (primary) hypertension; K21.9 Gastro-esophageal reflux disease without esophagitis; D64.9 Anemia, unspecified; G47.33 Obstructive sleep apnea (adult) (pediatric); Z79.899 Other long term (current) drug therapy
CPT/HCPCS: 36415; 58300; 58558; 81025; 85027; 86850; 86900; 86901; 88305; J0131; J1100; J1885; J2250; J2405; J3010; J7298

== ENCOUNTER → 2024-04-14 | Outpatient (REF) | payer OTHER ==
[~2024-04-14] MED LIST changes: +IBUP1TAB7 PO
[2024-04-14 19:11] LABS: BASO # 0.1 10^3/uL (0.0-0.2); BASO % 0.5 % (0.0-1.0); EOS # 0.2 10^3/uL (0.0-0.5); EOS % 1.8 % (0.0-3.0); HEMATOCRIT 46.4 % (36.0-47.0); HEMOGLOBIN 15.7 g/dl (12.0-15.5); LYMPH % 20.5 % (24.0-44.0); MEAN CORPUSCULAR HEMOGLOBIN 27.2 pg (27.0-33.0); MEAN CORPUSCULAR HGB CONC 33.8 g/dl (32.0-36.5); MEAN CORPUSCULAR VOLUME 80.4 fl (80.0-96.0); MONO # 0.7 10^3/uL (0.0-0.8); MONO % 7.6 % (2.0-8.0); NEUTROPHILS # 6.6 10^3/uL (1.5-8.5); NEUTROPHILS % 69.1 % (36.0-66.0); PLATELET COUNT, AUTOMATED 194 10^3/uL (150-450); RED BLOOD COUNT 5.77 10^6/uL (4.00-5.40); WHITE BLOOD COUNT 9.6 10^3/uL (4.0-10.0)
[2024-04-14 19:19] LABS: COMPLEMENT C3 142.4 MG/DL (84.0-160.0); COMPLEMENT C4 28.8 MG/DL (12-36); RHEUMATOID FACTOR QUANT 3.9 IU/ML (<14)
[2024-04-14 19:20] LABS: ALBUMIN 3.8 G/DL (3.2-5.2); ALKALINE PHOSPHATASE 101 U/L (46-116); ALT/SGPT 22 U/L (7.0-40); AST/SGOT 13 U/L (<34); BILIRUBIN,TOTAL 0.5 MG/DL (0.3-1.2); BLOOD UREA NITROGEN 12 MG/DL (9-23); CARBON DIOXIDE LEVEL 28 MMOL/L (20-31); CHLORIDE LEVEL 102 MMOL/L (98-107); CHOLESTEROL LEVEL 157 MG/DL (<200); CHOLESTEROL RISK RATIO 4.37 (<5); GLOMERULAR FILTRATION RATE > 60.0 (>60); GLUCOSE, FASTING 140 MG/DL (60-100); HDL CHOLESTEROL 35.9 MG/DL (>40); LDL CHOLESTEROL 93.7 MG/DL (<100); NON-HDL-C 121.1 MG/DL; POTASSIUM SERUM 3.4 MMOL/L (3.5-5.1); SODIUM LEVEL 139 MMOL/L (136-145); TRIGLYCERIDES LEVEL 137 MG/DL (<150)
[2024-04-14 19:22] LABS: THYROID STIMULATING HORMONE 2.158 uIU/ML (0.55-4.78)
[2024-04-14 19:23] LABS: FREE T4 0.94 NG/DL (0.89-1.76)
[2024-04-14 19:49] LABS: HEMOGLOBIN A1c 5.7 % (4.0-6.0)
== END ==
LOC: M SFHCCLAY 08:20
PROVIDERS: ATTEND Nurse Practitioner Family
DX: D64.9 Anemia, unspecified (principal); E78.2 Mixed hyperlipidemia; I10 Essential (primary) hypertension; Z82.49 Family history of ischemic heart disease and other diseases of the circulatory system; Z13.1 Encounter for screening for diabetes mellitus; R19.4 Change in bowel habit; R10.32 Left lower quadrant pain

== ENCOUNTER → 2024-04-27 | Outpatient (CLI) | payer OTHER ==
[~2024-04-27] MED LIST changes: +GASTROGRAFIN SOLUTION 30ML As Ordered ONE; +ISOVUE-370 76% 100ML VIAL As Ordered ONE
== END ==
LOC: M RAD 15:02
PROVIDERS: ATTEND Nurse Practitioner Family
DX: R19.4 Change in bowel habit (principal); R10.32 Left lower quadrant pain
CPT/HCPCS: 74177; Q9963; Q9967

== ENCOUNTER → 2024-05-21 | Outpatient (CLI) | payer OTHER ==
[~2024-05-21] MED LIST changes: -GASTROGRAFIN SOLUTION 30ML As Ordered ONE; -ISOVUE-370 76% 100ML VIAL As Ordered ONE
== END ==
LOC: M WHC 07:43
PROVIDERS: ATTEND Nurse Practitioner Family
DX: N83.202 Unspecified ovarian cyst, left side (principal); Z97.5 Presence of (intrauterine) contraceptive device; N88.8 Other specified noninflammatory disorders of cervix uteri

== ENCOUNTER → 2024-08-28 | Outpatient (CLI) | payer OTHER | LOC: M WHC 07:20 | PROVIDERS: ATTEND Nurse Practitioner Family | DX: N83.202 Unspecified ovarian cyst, left side (principal); N88.8 Other specified noninflammatory disorders of cervix uteri; D25.9 Leiomyoma of uterus, unspecified; Z97.5 Presence of (intrauterine) contraceptive device; R93.89 Abnormal findings on diagnostic imaging of other specified body structures; Z90.721 Acquired absence of ovaries, unilateral ==

== ENCOUNTER → 2024-11-25 | Outpatient (CLI) | payer OTHER | LOC: M PLAIMG 10:04 | PROVIDERS: ATTEND Nurse Practitioner Family | DX: S32.010D Wedge compression fracture of first lumbar vertebra, subsequent encounter for fracture with routine healing (principal) ==

== ENCOUNTER 2025-01-22 07:45 | Day surgery (SDC) | payer OTHER ==
[~2025-01-22] VITALS: Ht 160 cm; Wt 119.7 kg
[~2025-01-22 07:45] MED LIST changes: +ALL10TAB3 PO
[2025-01-22] MEDS ORDERED: propofoL 200 MG/20 ML VIAL As Ordered ONE (08:16)
[2025-01-22] MEDS ORDERED: LIDOCAINE 2% 100MG/5ML SDV (FOR ANES.) As Ordered ONE (08:16)
[2025-01-22] MEDS ORDERED: GLYCOPYRROLATE INJ 0.2 MG/ML 2 ML VIAL As Ordered ONE (08:16)
[2025-01-22 08:51] VITALS: TEMP 97.2
[2025-01-22 09:09] VITALS: BP 141/73; O2SAT 97
== END 2025-01-22 09:14 | disposition home or self-care (01) ==
LOC: M OPP 07:45
PROVIDERS: ATTEND Internal Medicine Gastroenterology
DX: K57.30 Diverticulosis of large intestine without perforation or abscess without bleeding (principal); K64.8 Other hemorrhoids; R19.4 Change in bowel habit; R10.84 Generalized abdominal pain; G47.30 Sleep apnea, unspecified; Z79.899 Other long term (current) drug therapy
CPT/HCPCS: 45380; 88305; J1596

== ENCOUNTER 2025-09-10 13:59 | Emergency (ER) | payer OTHER ==
[~2025-09-10] VITALS: Ht 180.3 cm; Wt 120.5 kg
[~2025-09-10 13:59] MED LIST changes: -LABE200T5 PO; +LABE200T86 PO
[2025-09-10] MEDS: ACETAMINOPHEN 325 MG TAB PO ONE (15:17)
[2025-09-10] MEDS: TETANUS/DIPHTH/ACEL. PERTUSSIS 0.5 ML SYR IM.IMMUN ONE (15:19)
[2025-09-10 15:43] LABS: BASO # 0.1 10^3/uL (0.0-0.2); BASO % 0.4 % (0.0-1.0); EOS # 0.2 10^3/uL (0.0-0.5); EOS % 1.1 % (0.0-3.0); LYMPH # 2.2 10^3/uL (1.5-5.0); LYMPH % 13.7 % (24.0-44.0); MONO # 1.1 10^3/uL (0.0-0.8); MONO % 6.6 % (2.0-8.0); NEUTROPHILS # 12.3 10^3/uL (1.5-8.5); NEUTROPHILS % 77.7 % (36.0-66.0); PLATELET COUNT, AUTOMATED 218 10^3/uL (150-450)
[2025-09-10 16:12] LABS: CALCIUM LEVEL 8.7 MG/DL (8.5-10.1); CARBON DIOXIDE LEVEL 28 MMOL/L (20-31); CHLORIDE LEVEL 99 MMOL/L (98-107); CREATININE FOR GFR 0.60 MG/DL (0.55-1.30); GLOMERULAR FILTRATION RATE > 90.0 (>60); POTASSIUM SERUM 3.2 MMOL/L (3.5-5.1); SODIUM LEVEL 139 MMOL/L (136-145)
[2025-09-10 16:20] LABS: HCG, SERUM QUALITATIVE NEGATIVE (NEGATIVE)
[2025-09-10] MEDS ORDERED: ISOVUE-370 76% 100 ML VIAL As Ordered ONE (17:05)
[2025-09-10] MEDS: POTASSIUM CHLORIDE 10MEQ SR TABLET PO ONE (17:23)
[2025-09-10 18:45] VITALS: BP 131/81; TEMP 97.4; O2SAT 99
== END 2025-09-10 19:05 | disposition home or self-care (01) ==
LOC: EDBD 13:59 → M ED 13:59
DX: S92.402A Displaced unspecified fracture of left great toe, initial encounter for closed fracture (principal); S30.11XA Contusion of abdominal wall, initial encounter; S32.010A Wedge compression fracture of first lumbar vertebra, initial encounter for closed fracture; M23.92 Unspecified internal derangement of left knee; V43.52XA Car driver injured in collision with other type car in traffic accident, initial encounter; Y92.9 Unspecified place or not applicable; Y93.9 Activity, unspecified; Y99.9 Unspecified external cause status; K76.0 Fatty (change of) liver, not elsewhere classified; R16.0 Hepatomegaly, not elsewhere classified; N83.202 Unspecified ovarian cyst, left side; N28.89 Other specified disorders of kidney and ureter; K57.90 Diverticulosis of intestine, part unspecified, without perforation or abscess without bleeding; M17.12 Unilateral primary osteoarthritis, left knee; I10 Essential (primary) hypertension; Z79.899 Other long term (current) drug therapy
CPT/HCPCS: 71045; 71260; 73130; 73564; 73590; 73630; 74177; 80047; 80048; 84703; 85025; 90471; 90715; 93041; 94760; 99285; Q9967

== ENCOUNTER → 2025-10-13 | Outpatient (CLI) | payer OTHER | LOC: M SOG 07:37 | PROVIDERS: ATTEND Orthopaedic Surgery | DX: M79.672 Pain in left foot (principal) ==

== ENCOUNTER → 2025-10-15 | Outpatient (CLI) | payer OTHER | LOC: M WHC 14:21 | PROVIDERS: ATTEND Nurse Practitioner Family | DX: N83.202 Unspecified ovarian cyst, left side (principal) ==